=== PATIENT | male | born 1955 | race Caucasian/White ===

== ENCOUNTER 2021-10-21 13:30 | Outpatient (CLI) | payer BC | END 2021-10-21 13:31 | disposition home or self-care (01) | LOC: CSHMRI 13:30 | PROVIDERS: ATTEND Family Medicine | DX: M51.16 Intervertebral disc disorders with radiculopathy, lumbar region (principal); M47.816 Spondylosis without myelopathy or radiculopathy, lumbar region; M51.36 Other intervertebral disc degeneration, lumbar region; M48.061 Spinal stenosis, lumbar region without neurogenic claudication; M43.16 Spondylolisthesis, lumbar region | CPT/HCPCS: 72148 ==

== ENCOUNTER 2023-10-25 16:00 | Outpatient (CLI) | payer MEDICARE, BC | END 2023-10-25 16:01 | disposition home or self-care (01) | LOC: CSHSLEEP 16:00 | PROVIDERS: ATTEND Family Medicine | DX: G47.33 Obstructive sleep apnea (adult) (pediatric) (principal); R53.83 Other fatigue; G47.61 Periodic limb movement disorder; R06.83 Snoring | CPT/HCPCS: 95811 ==